=== PATIENT | female | born 1970 | race Caucasian/White ===

== ENCOUNTER 2020-04-28 04:58 | Emergency (ER) | payer SELFPAY ==
[~2020-04-28] VITALS: Ht 160 cm; Wt 91.0 kg
[2020-04-28 06:39] LABS: BASOPHILS % 0.4 % (0.0-2.0); EOSINOPHILS % 0.6 % (0.0-5.0); HEMATOCRIT. 39.7 % (36.0-48.0); HEMOGLOBIN. 13.7 g/dL (12.0-16.0); LYMPHOCYTES % 13.6 % (20.0-50.0); MEAN CORPUSCULAR HEMOGLOBIN 29.5 pg (28.0-32.0); MEAN CORPUSCULAR VOLUME 85.7 fL (81.0-99.0); MEAN PLATELET VOLUME 6.6 fl (7.4-10.4); MONOCYTES % 5.1 % (2.0-8.0); NEUTROPHILS % 80.3 % (40.0-76.0); PLATELET 242 x1000/uL (130-400); RED BLOOD CELL COUNT 4.63 mill/uL (4.2-5.4); RED CELL DISTRIBUTION WIDTH 13.6 % (11.6-14.6)
[2020-04-28 06:46] LABS: CHLORIDE 109 mEq/L (98-107)
[2020-04-28 06:51] LABS: ETHANOL BLOOD < 10 mg/dL
[2020-04-28] MEDS: ONDANSETRON HCL 4MG/2ML INJ IV STA (07:16)
[2020-04-28] MEDS: SODIUM CHLORIDE 0.9% 1,000 ML IV ONE (07:16)
[2020-04-28] MEDS: POTASSIUM CHLORIDE 20MEQ TABLET SR PO ONE (07:17)
[2020-04-28 08:20] VITALS: BP 125/58
[2020-04-28 09:40] LABS: CLARITY URINE CLEAR (CLEAR); COLOR URINE YELLOW (YELLOW); KETONES URINE NEGATIVE (NEGATIVE); LEUKOCYTE ESTERASE URINE NEGATIVE (NEGATIVE); NITRITE URINE NEGATIVE (NEGATIVE); OCCULT BLOOD URINE NEGATIVE (NEGATIVE); PROTEIN URINE NEGATIVE (NEGATIVE); SPECIFIC GRAVITY URINE 1.016 (1.005-1.030); UROBILINOGEN URINE 0.2 E.U./dL (0.2-1.0)
[2020-04-28 09:51] LABS: *AMPHETAMINES SCREEN URINE NEGATIVE (NEGATIVE)
[2020-04-28 09:52] LABS: *BARBITURATES SCREEN URINE NEGATIVE (NEGATIVE); *BENZODIAZEPINES SCREEN URINE NEGATIVE (NEGATIVE); *COCAINE SCREEN URINE NEGATIVE (NEGATIVE); METHADONE URINE SCREEN NEGATIVE (NEGATIVE); OPIATES URINE SCREEN NEGATIVE (NEGATIVE); PHENCYCLIDINE URINE SCREEN NEGATIVE (NEGATIVE)
[2020-04-28 09:53] LABS: CANNABINOID URINE SCREEN PRESUMTIVE POSITIVE (NEGATIVE)
== END 2020-04-28 09:43 | disposition home or self-care (01) ==
LOC: ER 04:58
DX: E87.6 Hypokalemia (principal); R53.1 Weakness; G45.9 Transient cerebral ischemic attack, unspecified; I10 Essential (primary) hypertension; Z88.6 Allergy status to analgesic agent
CPT/HCPCS: 36415; 70450; 71045; 80053; 80305; 80320; 81003; 83690; 85025; 93005; 96361; 96374; 99285; J2405; J7030; G0480